=== PATIENT | male | born 1940 | race Caucasian/White ===

== ENCOUNTER 2022-09-15 18:22 | Outpatient (RCR) | payer MEDICARE, SELFPAY | END 2022-10-09 23:59 | disposition home or self-care (01) | LOC: MM 18:22 | PROVIDERS: PCP Internal Medicine; Visit Provider Internal Medicine | DX: Z51.81 Encounter for therapeutic drug level monitoring (principal); Z79.01 Long term (current) use of anticoagulants; I48.20 Chronic atrial fibrillation, unspecified ==

== ENCOUNTER 2022-09-23 03:52 | Emergency (ER) | payer MEDICARE, SELFPAY ==
[2022-09-23] VITALS (9 sets, daily range): BP systolic 114–146; BP diastolic 59–81; PULSE 63–68; RESP 16–24; TEMP 36.7; O2SAT 95–98; BMI 33.5
--- NOTE | 2022-09-23 04:21 | ECG_ITS ---
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
--- NOTE | 2022-09-23 04:21 | CT_ITS ---
The [address] [address] Patient Name: ANNALISA ESCOBAR MRN: [id number] date: 1940 Sex: M Assigned Patient Location: ER Current Patient Location: Accession/Order Number: [id number] Exam Date: 09/23/2022 04:46 Report Date: 09/23/2022 06:11 At the request of: MARYCHUY MARKER Procedure: CT abdomen pelvis wo con EXAM: CT abdomen pelvis wo con HISTORY: pelvic fract ; technologist notes state fall. COMPARISON: None. TECHNIQUE: Routine CT abdomen/pelvis without intravenous contrast. FINDINGS: Partially imaged coronary artery calcification. Partially imaged gynecomastia. Small hiatal hernia. Mild atelectatic densities at both lung bases. The liver is unremarkable. There are gallstones within the gallbladder which is otherwise unremarkable. There is no biliary dilatation. There is fatty infiltration of the pancreas which is otherwise unremarkable. The spleen, bilateral adrenal glands and bilateral kidneys are unremarkable. The colon is unremarkable containing a moderate amount of stool. There is a tubular structure extending from the cecum which most likely represents the appendix and is unremarkable. There is a small hiatal hernia. The stomach is otherwise unremarkable. The small bowel is normal caliber. The bowel gas pattern is nonobstructive. There is no free air. There is mild edema within the presacral space. There is no inflammatory reaction. Mild atheromatous calcification along the abdominal aorta and iliac arteries. The inferior vena cava is unremarkable. There are no pathologically enlarged lymph nodes within the abdomen/pelvis. The underdistended unopacified urinary bladder is unremarkable. There are partially visualized stranding densities within the subcutaneous tissues along the medial margin of the inferior aspect of the right buttock. Correlation should be made with the clinical examination to exclude an inflammatory process. The bony structures are osteopenic. There is slight levoscoliosis of the lumbar spine. Stable 0.6 cm anterolisthesis of L5 on S1 which may be based on facet arthritis. Stable less than 5% loss of height of the T11, T12, L1 and L2 vertebral bodies. Multilevel syndesmophytes along the spine and fusion of the bilateral sacroiliac joints which can be associated with ankylosing spondylitis. Additional multilevel degenerative changes along the spine. There are severe degenerative changes at the bilateral hip joints. There is chondrocalcinosis at the symphysis which is otherwise unremarkable. There is no acute fracture. IMPRESSION: Nonobstructive bowel gas pattern with a moderate amount of stool within the colon. There is a small hiatal hernia. Cholelithiasis. Mild edema within the presacral space. There are partially visualized stranding densities within the subcutaneous tissues along the medial margin of the inferior aspect of the right buttock. Correlation should be made with the clinical examination to exclude an inflammatory process. There is no acute fracture. Stable less than 5% loss of height of the T11, T12, L1 and L2 vertebral bodies. Findings consistent with ankylosing spondylitis. Electronically authenticated by: MAICOL TOVAR Date: 09/23/2022 06:11
--- NOTE | 2022-09-23 04:21 | CT_ITS ---
The [address] [address] Patient Name: ANNALISA ESCOBAR MRN: [id number] date: 1940 Sex: M Assigned Patient Location: ER Current Patient Location: ER Accession/Order Number: [id number] Exam Date: 09/23/2022 04:46 Report Date: 09/23/2022 06:14 At the request of: MARYCHUY MARKER Procedure: CT head/brain wo con EXAM: CT head/brain wo con CLINICAL INDICATION: Fall, AMS COMPARISON: None TECHNIQUE: Axial CT images of the brain were obtained without contrast. Dose reduction techniques were achieved by using automated exposure control and/or adjustment of mA and/or kV according to patient size and/or use of iterative reconstruction technique. FINDINGS: Brain parenchyma: No mass effect or midline shift is seen. Alan-white differentiation is maintained. Small focal area of acute subdural hemorrhage visualized along the anterior right temporal convexity measuring 3.3 mm. No other areas of hemorrhage visualized.. No findings suggesting acute stroke. Periventricular hypoattenuation / patchy white matter hypodensities are statistically most often related to small vessel ischemic disease. Ventricles and extra-axial spaces: Ventricles are concordant with sulci. No findings suggesting hydrocephalus. Visualized paranasal sinuses: Layering hyperdensity noted within the right frontal sinus which may represent blood products. Layering fluid noted within the left frontal sinus. Air-fluid level visualized within the right maxillary sinus.. Mastoid air cells: Clear. Included portions of the orbits:There are some hyperdensities noted along the posterior left globe which may represent vitreous hemorrhage. Bones: Questionable nondisplaced fracture along the outer table of the right frontal bone along the region of the right frontal sinus with foci of air noted anterior to the frontal bone. Soft tissue swelling with subgaleal hematoma noted along the right frontal scalp measuring with a maximal thickness of 4.7 mm.. Impression: 1. Small focal area of acute subdural hemorrhage visualized along the anterior right temporal convexity measuring 3.3 mm, no other areas of hemorrhage visualized. No evidence for mass effect or midline shift. 2. Hyperdensities noted along the posterior aspect of the left globe which may represent vitreous hemorrhage. 3. Layering hyperdensity noted within the right frontal sinus which may represent blood products. There is a questionable nondisplaced fracture visualized along the outer table of the right frontal bone along the region of the right frontal sinus with foci of air noted anterior to the frontal bone. Soft tissue swelling with subgaleal hematoma noted along the right frontal scalp measuring with a maximal thickness of 4.7 mm. Findings were relayed to Dr. Aguirre over telephone by Dr. Garcia at 6:14 AM on 09/23/2022. Electronically authenticated by: DAE GARCIA Date: 09/23/2022 06:14
--- NOTE | 2022-09-23 04:23 | CT_ITS ---
The [address] [address] Patient Name: ANNALISA ESCOBAR MRN: [id number] date: 1940 Sex: M Assigned Patient Location: ER Current Patient Location: .[facility] Accession/Order Number: [id number] Exam Date: 09/23/2022 04:46 Report Date: 09/23/2022 06:02 At the request of: MARYCHUY LOERA Procedure: CT cervical spine wo con EXAM: CT cervical spine wo con HISTORY: fall, head trauma COMPARISON: CT cervical spine 04/29/2021. TECHNIQUE: Axial CT images of the cervical spine were obtained without intravenous contrast administration. Reformatted images in coronal and sagittal planes were then acquired using the axial source data. Automated dose lowering techniques and/or adjustment according to patient size were utilized for this examination. FINDINGS: There is mild straightening of the normal cervical lordotic curvature. Vertebral body heights are preserved. Osseous fusion of the C5 and C6 vertebral bodies visualized. Diffuse osteopenic bone density visualized. The ring of C1 is intact. The odontoid process is intact. No acute fractures are visualized. The posterior elements are intact. The prevertebral soft tissues appear unremarkable. The cervical spine alignment is maintained without evidence for significant spondylolisthesis. Multilevel degenerative disc disease visualized with the most advanced changes at the C6-C7 level with severe disc height loss. There is moderate disc height loss at C3-C4 and mild to moderate within the remainder of the cervical spine. 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 Multilevel disc osteophyte complexes visualized with mild to moderate central canal narrowing at C4-C5, no evidence to suggest high-grade central canal narrowing within the cervical spine. Multilevel facet and uncovertebral arthropathy visualized contributing to multilevel neuroforaminal narrowing. There is moderate to severe left neuroforaminal narrowing at C2-C3. Severe bilateral neuroforaminal narrowing at C3-C4. Moderate to severe right neuroforaminal narrowing at C4-C5. Moderate bilateral neuroforaminal narrowing at C5-C6. IMPRESSION: 1. Multilevel degenerative changes of the cervical spine without evidence for an acute fracture or traumatic malalignment. Electronically authenticated by: DAE GARCIA Date: 09/23/2022 06:02
--- NOTE | 2022-09-23 04:24 | ED_ITS ---
HPI - General Adult General Chief complaint: Extremity Injury, Upper Time Seen by Provider: 09/23/22 04:21 Source: patient and family Mode of arrival: ambulance Limitations: altered mental status and other (hx dementia) Limitations comment: hx dementia History of Present Illness HPI narrative: This 81-year-old male with a history of dementia and neuropathy is brought to the emergency department by EMS accompanied by his and daughter. The patient's daughter states that he has dementia and has fallen 4 times this week. This morning he was blowing his nose when he lost his balance and fell striking his head and face against a wall or door. The patient's did not see him fall but heard him fall. He also had a fall this week when he fell flat onto his buttocks and according to his has a bad bruise in his buttock area. He did require fasciotomy in the past due to an injury to his right upper leg. The patient has been eating and drinking normally. He has not had a fever or cough. He denies any chest pain or shortness of breath. He does have a history of neuropathy and the family relates this as the etiology of his recent falls.This morning when he fell he sustained several abrasions to his forehead, bridge of his nose and superficial skin tears to the right forearm. He denies any neck or back pain. EMS was called because the patient's was unable to get him off of the floor. The patient is jovial upon arrival and denies any significant pain but states his face is burning. Onset (ago): hour(s) (1) Location: Reports face, pelvis and genitals Severity: mild Quality: Reports burning Related Data Home Medications Medication Instructions Recorded Confirmed aspirin 81 mg tablet,delayed 81 mg PO DAILY 09/23/22 09/23/22 release (Adult Low Dose Aspirin) atorvastatin 40 mg tablet 40 mg PO QDAY 09/23/22 09/23/22 furosemide 20 mg tablet 20 mg PO QDAY 09/23/22 09/23/22 gabapentin 300 mg capsule 300 mg PO Q8H 09/23/22 09/23/22 insulin NPH isoph U-100 human 100 24 unit subcut .q2day 09/23/22 09/23/22 unit/mL subcutaneous suspension (Novolin N NPH U-100 Insulin isophane) insulin aspart U-100 100 unit/mL See Rx Instructions subcut .s3sbypv 09/23/22 09/23/22 subcutaneous solution (Novolog U-100 Insulin aspart) omeprazole 20 mg capsule,delayed 20 mg PO Q12H 09/23/22 09/23/22 release tamsulosin 0.4 mg capsule 0.4 mg PO Q24H 09/23/22 09/23/22 warfarin 3 mg tablet 3 mg PO QDAY 09/23/22 09/23/22 Allergies Allergy/AdvReac Type Severity Reaction Status Date / Time No Known Drug Allergies Allergy Verified 09/23/22 03:58 Review of Systems ROS Status of ROS 10 or more systems reviewed and unremarkable except as noted in history and below PFSH PFS Social History Smoking status: Never smoker Exam Constitutional Vital Signs - 24 hr 09/23/22 03:55 09/23/22 03:55 09/23/22 05:03 Temperature 98.1 F Pulse Rate 63 Pulse Rate [Monitor] 68 Respiratory Rate 18 24 Blood Pressure 146/81 H 132/68 H Blood Pressure [Left Arm] 146/81 H Pulse Oximetry 96 96 Oxygen Delivery Method Room Air 09/23/22 05:31 09/23/22 06:01 09/23/22 06:01 Temperature Pulse Rate Pulse Rate [Monitor] Respiratory Rate Blood Pressure 114/63 130/59 H 130/59 H Blood Pressure [Left Arm] Pulse Oximetry Oxygen Delivery Method 09/23/22 06:31 Temperature Pulse Rate Pulse Rate [Monitor] Respiratory Rate Blood Pressure 121/59 H Blood Pressure [Left Arm] Pulse Oximetry Oxygen Delivery Method Documenting provider has reviewed patient's vital signs: yes Common normals: no apparent distress, healthy appearing and alert Exam limitations: altered mental status ( pleasantly confused and at his baseline mental status according to /da) General appearance: cooperative, comfortable and well kempt Nutritional appearance: overweight Orientation/consciousness: Yes awake [facility] Common normals: normocephalic, head/scalp atraumatic (superficial abrasion/contusion to forehead and bridge of nose), external ears normal, TMs normal bilaterally, nasal mucous membranes and turbinates normal, moist oral mucous membranes (no oral lesions) and oropharynx normal Head and scalp: normocephalic and atraumatic Face and sinus: normal facial exam Nose: external nose normal (abrasion to bridge of nose) External ear: external ears normal External auditory canal: EACs normal Tympanic membrane: TMs normal bilaterally Eye Common normals: EOMs intact bilaterally and conjunctivae normal (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)) Visual acuity: acuity normal Alignment: alignment normal Periorbital: periorbital findings normal Eyelid: eyelids normal Pupil: PERRL Neck & C-Spine Common normals: full ROM, no lymphadenopathy, supple and no meningeal signs General: tenderness (no posterior cervical midline tenderness or step off) Chest Common normals: inspection of chest normal and palpation of chest normal Respiratory Common normals: normal respiratory effort, no retractions, no use of accessory muscles and clear to auscultation bilaterally Effort & inspection: able to speak in complete sentences Cardio Common normals: regular rate, S1 normal heart sound, S2 normal heart sound, no gallops, no clicks, no murmurs and no rub Palpation: normal PMI Rate: regular rate Rhythm: abnormal rhythm (irregular rhythm consistent with atrial fibrillation) GI Common normals: Normal to inspection, nondistended, normoactive bowel sounds present, soft to palpation and non-tender Common normals: external exam normal (marked ecchymosis to medial buttocks B/L with ext to scrotum) and scrotum normal (marked ecchymosis to b/L scrotum but testes are non-tender) Male Groin/Perineum Exam: ecchymosis and perineal induration (bruising and induration to left buttock w ext to right buttock and scrotum) Penis: normal penis and circumcised Meatus: meatus normal Scrotum: testes descended bilaterally and ecchymosis Testes: testicular lie normal Back & Pelvis Common normals: no CVA tenderness and thoracic and lumbar spine normal to inspection Lumbar spine/lower back: normal to inspection Pelvis: buttocks normal (bruising and induration to left buttock and scrotum, no crepitus ) Extremity Common normals: full ROM (3 skin tears to right forearm) General: normal exam except as noted Left lower extremity: knee joint (bruising without bony tenderness to left knee, no shortening or rotation) Neuro Common normals: oriented x3, CN's II-XII intact bilaterally, moves all extremities, no focal motor deficits and no sensory deficits noted Sensorium/orientation: awake and alert Meningeal signs: no meningeal signs Cranial nerves: CN normal except as noted Speech: speech normal Psych Common normals: mental status grossly normal Course Course Hospital Course: Pt remains awake and alert without any change in his neuro status Results of labs and CT scans discussed with patient and his who verbalize understanding and are in agreement with transfer. Vital Signs Vital signs: Vital Signs Temperature 98.1 F 09/23/22 03:55 Pulse Rate 63 09/23/22 03:55 Respiratory Rate 18 09/23/22 03:55 Blood Pressure 146/81 H 09/23/22 03:55 Pulse Oximetry 96 09/23/22 03:55 Oxygen Delivery Method Room Air 09/23/22 03:55 Temperature 98.1 F 09/23/22 03:55 Pulse Rate 68 09/23/22 03:55 Respiratory Rate 24 09/23/22 03:55 Blood Pressure 121/59 H 09/23/22 06:31 Pulse Oximetry 96 09/23/22 03:55 Oxygen Delivery Method Room Air 09/23/22 03:55 Medical Decision Making MDM Narrative Medical decision making narrative: This 81-year-old male who is on Coumadin for history of atrial fibrillation is brought to the emergency department by EMS accompanied by his family. According to the patient's daughter, he has had 4 falls this week. This morning he states that he was blowingg his nose and lost his balance falling into a wall or a door. He sustained several skin tears to the right forearm and abrasion/contusion to his forehead and bridge of his nose. His GCS is 15. He is awake alert oriented. His states he also has purplish bruising in his perineal area after a fall when he landed on his buttocks earlier in the week. He has extensive bruising from both buttocks including his scrotum. This does not appear to be particularly tender for the patient. There was no crepitus in this area. He is diabetic but has not had any increasing and confusion or fever. Light of the history of Coumadin use and falls a cardiac workup ensued. He had an EKG performed that was no rhythm at 60 beats for minute. Routine labs are reviewed. He has a low white count at 2.7. Hemoglobin is normal. Electrolytes were normal. CT scan of the head shows a 3.3 mm subdural hematoma with a questionable frontal bone fracture. CT scan of the cervical spine shows extensive degenerative changes but no acute fracture and noncontrast CT scan of the abdomen and pelvis shows some thickening in the subcutaneous days tissues on the medial margin of the inferior aspect of the right buttock but no sign of acute fracture. The cans were discussed with the patient and his . I discussed the case with Dr. Pierson at [facility] and he is accepted for transfer to the emergency department for a trauma consult and further evaluation. He was medicated with Tylenol in the emergency department and his skin tears were cleaned and closed with Dermabond. PT INR testing is pending at this time. If elevated he will be given IV vitamin K Lab Data Lab results reviewed: Yes I reviewed the patient's lab results Labs: Lab Results 09/23/22 09/23/22 Range/Units 04:43 04:45 WBC 2.7 L (4.0-11.0) 10^3/uL RBC 3.00 L (4.70-6.10) 10^6/uL Hgb 11.0 L (14.0-18.0) g/dL Hct 31.6 L (42.0-54.0) % MCV 105.3 H (80.0-94.0) fL MCH 36.7 H (25.9-34.0) pg MCHC 34.8 (29.9-35.2) g/dL RDW 13.2 (11.0-15.0) % Plt Count 108 L (150-450) 10^3/uL MPV 11.1 (9.5-13.5) fL Neut % (Auto) 63.8 (43.0-75.0) % Lymph % (Auto) 28.2 (20.5-60.0) % [place] % (Auto) 3.8 (1.7-12.0) % Eos % (Auto) 3.0 (0.9-7.0) % Baso % (Auto) 0.8 (0.2-2.0) % Neut # (Auto) 1.7 (1.4-6.5) 10^3/uL Lymph # (Auto) 0.8 L (1.2-3.8) 10^3/uL [place] # (Auto) 0.1 L (0.3-0.8) 10^3/uL Eos # (Auto) 0.1 (0.0-0.7) 10^3/uL Baso # (Auto) 0.0 (0.0-0.1) 10^3/uL Abs Immat Gran (auto) 0.01 (0.00-0.03) 10^3/uL Imm/Tot Granulo (auto) 0.4 (0.0-0.5) % Sodium 143 (136-145) mmol/L Potassium 3.5 (3.5-5.1) mmol/L Chloride 106 (98-107) mmol/L Carbon Dioxide 28.1 (21.0-32.0) mmol/L Anion Gap 12.4 BUN 15.0 (7.0-18.0) mg/dL Creatinine 0.99 (0.70-1.30) mg/dL Est GFR ( Amer) >60 (>=60) Est GFR (Non-Af Amer) >60 (>=60) BUN/Creatinine Ratio 15.2 Glucose 90 (74-106) mg/dL Lactate 1.3 (0.4-2.0) mmol/L Calcium 8.6 (8.5-10.1) mg/dL Total Creatine Kinase 113 (39-308) U/L POC Glucose 88 (74-106) mg/dL ECG Data Attestation: I personally reviewed and interpreted this ECG as follows: (Atrial rhythm at 60 beats for minute, nonspecific ST changes, no acute ST segment elevation or T-wave inversion) Critical Care Time Critical Care Time Critical Care Time: Yes Total Critical Care Time: 40 Attestation: I evaluated and treated this patient Discharge Plan Discharge Chief Complaint: Extremity Injury, Upper Clinical Impression: Skin tear of forearm without complication, Acute subdural hematoma, Fall from standing, Contusion of pelvic region Patient Disposition: [facility] Time of Disposition Decision: 06:42 Discharge Location: [facility] Condition: Fair Mode of Transportation: EMS Procedures ED Laceration Laceration Laceration 1: Site: upper extremity Size (cm): 1.5 Description: flap and clean Skin layer closed with: other (dermabond applied topically over right forearm lacerations with good wound edge approximation)
--- NOTE | 2022-09-23 04:24 | PC.NURSE ---
Bruising to buttock, perineal, and scrotum from previous fall. Pt's family unsure when pt bruising started just noticed this morning. Pt states that family has been falling more, and in the last week has had fallen 4 times.
[2022-09-23 04:46] LABS: Glucometer 88 mg/dL (74-106)
[2022-09-23 05:22] LABS: Basophils Percent Auto 0.8 % (0.2-2.0); Eosinophils Absolute Auto 0.1 10^3/uL (0.0-0.7); Hematocrit 31.6 % (42.0-54.0); Immature Granulocytes Abs Auto 0.01 10^3/uL (0.00-0.03); Immature Granulocytes Pct Auto 0.4 % (0.0-0.5); Lymphocytes Absolute Auto 0.8 10^3/uL (1.2-3.8); Lymphocytes Percent Auto 28.2 % (20.5-60.0); Mean Corpuscular HGB Conc 34.8 g/dL (29.9-35.2); Mean Corpuscular Hemoglobin 36.7 pg (25.9-34.0); Mean Corpuscular Volume 105.3 fL (80.0-94.0); Mean Platelet Volume 11.1 fL (9.5-13.5); Monocytes Absolute Auto 0.1 10^3/uL (0.3-0.8); Monocytes Percent Auto 3.8 % (1.7-12.0); Neutrophils Absolute Auto 1.7 10^3/uL (1.4-6.5); Neutrophils Percent Auto 63.8 % (43.0-75.0); Platelet Count 108 10^3/uL (150-450); Red Cell Distribution Width 13.2 % (11.0-15.0); White Blood Count 2.7 10^3/uL (4.0-11.0)
[2022-09-23] MEDS: ACETAMINOPHEN 325 MG TABLET 650 MG PO (05:29)
[2022-09-23 05:37] LABS: Anion Gap 12.4; BUN Creatinine Ratio 15.2; Calcium 8.6 mg/dL (8.5-10.1); Carbon Dioxide 28.1 mmol/L (21.0-32.0); Chloride 106 mmol/L (98-107); Creatine Kinase 113 U/L (39-308); Estimated GFR (African America >60 (>=60); Estimated GFR (Non-African Ame >60 (>=60); Glucose 90 mg/dL (74-106); Potassium 3.5 mmol/L (3.5-5.1); Sodium 143 mmol/L (136-145)
[2022-09-23 05:40] LABS: Lactate/Lactic Acid 1.3 mmol/L (0.4-2.0)
[2022-09-23 06:54] LABS: Bilirubin Urine NEGATIVE (NEGATIVE); Blood Urine TRACE-I (NEGATIVE); Clarity Urine CLEAR (CLEAR); Color Urine YELLOW (YELLOW); Glucose Urine UA NEGATIVE (NEGATIVE); Ketones Urine NEGATIVE (NEGATIVE); Leukocyte Esterase Urine NEGATIVE (NEGATIVE); Nitrite Urine NEGATIVE (NEGATIVE); Protein Urine NEGATIVE (NEG/TRACE); Specific Gravity Urine 1.025 (1.005-1.025); pH Urine 5.5 (5.0-9.0)
[2022-09-23 07:06] LABS: Bacteria Urine TRACE #/HPF (NONE SEEN); Mucus Urine NONE SEEN (NONE SEEN); RBC Urine 0-2 #/HPF (0-2); Squamous Epithelial Cell Urine RARE #/LPF (NONE/RARE); WBC Urine NONE SEEN #/HPF (NONE SEEN)
[2022-09-23 07:07] LABS: Cast Seen? NONE SEEN #/LPF (NONE SEEN); Crystals Seen? None Seen #/HPF (None Seen)
[2022-09-23 07:15] LABS: INR 2.82; Prothrombin Time 28.2 sec (9.0-11.6)
[2022-09-23 07:17] LABS: Partial Thromboplastin Time 41.8 sec (22.3-36.2)
--- NOTE | 2022-09-23 07:26 | ED_ITS ---
HPI - Trauma General Chief Complaint: Extremity Injury, Upper Time Seen by Provider: 09/23/22 04:21 Source: patient and family Mode of arrival: ambulance Limitations: altered mental status and other (hx dementia) Limitations comment: hx dementia History of Present Illness Onset (ago): hour(s) (1) Related Data Home Medications Medication Instructions Recorded Confirmed aspirin 81 mg tablet,delayed 81 mg PO DAILY 09/23/22 09/23/22 release (Adult Low Dose Aspirin) atorvastatin 40 mg tablet 40 mg PO QDAY 09/23/22 09/23/22 furosemide 20 mg tablet 20 mg PO QDAY 09/23/22 09/23/22 gabapentin 300 mg capsule 300 mg PO Q8H 09/23/22 09/23/22 insulin NPH isoph U-100 human 100 24 unit subcut .q2day 09/23/22 09/23/22 unit/mL subcutaneous suspension (Novolin N NPH U-100 Insulin isophane) insulin aspart U-100 100 unit/mL See Rx Instructions subcut .[id number] 09/23/22 09/23/22 subcutaneous solution (Novolog U-100 Insulin aspart) omeprazole 20 mg capsule,delayed 20 mg PO Q12H 09/23/22 09/23/22 release tamsulosin 0.4 mg capsule 0.4 mg PO Q24H 09/23/22 09/23/22 warfarin 3 mg tablet 3 mg PO QDAY 09/23/22 09/23/22 Allergies Allergy/AdvReac Type Severity Reaction Status Date / Time No Known Drug Allergies Allergy Verified 09/23/22 03:58 PFSH PFSH Social History Smoking status: Never smoker Exam Constitutional Vital Signs - 24 hr 09/23/22 03:55 09/23/22 03:55 09/23/22 05:03 Temperature 98.1 F Pulse Rate 63 Pulse Rate [Monitor] 68 Respiratory Rate 18 24 Blood Pressure 146/81 H 132/68 H Blood Pressure [Left Arm] 146/81 H Pulse Oximetry 96 96 Oxygen Delivery Method Room Air 09/23/22 05:31 09/23/22 06:01 09/23/22 06:01 Temperature Pulse Rate Pulse Rate [Monitor] Respiratory Rate Blood Pressure 114/63 130/59 H 130/59 H Blood Pressure [Left Arm] Pulse Oximetry Oxygen Delivery Method 09/23/22 06:31 09/23/22 06:31 09/23/22 07:00 Temperature Pulse Rate Pulse Rate [Monitor] 64 Respiratory Rate 20 Blood Pressure 121/59 H 121/59 H Blood Pressure [Left Arm] 134/60 H Pulse Oximetry 96 Oxygen Delivery Method Room Air 09/23/22 07:30 09/23/22 08:16 Temperature Pulse Rate Pulse Rate [Monitor] 63 66 Respiratory Rate 20 16 Blood Pressure Blood Pressure [Left Arm] 124/66 H 131/73 H Pulse Oximetry 97 95 Oxygen Delivery Method Room Air Room Air Course Course Hospital Course: Pt remains awake and alert without any change in his neuro status Results of labs and CT scans discussed with patient and his who verbalize understanding and are in agreement with transfer. Vital Signs Vital signs: Vital Signs Temperature 98.1 F 09/23/22 03:55 Pulse Rate 63 09/23/22 03:55 Respiratory Rate 18 09/23/22 03:55 Blood Pressure 146/81 H 09/23/22 03:55 Pulse Oximetry 96 09/23/22 03:55 Oxygen Delivery Method Room Air 09/23/22 03:55 Temperature 98.1 F 09/23/22 03:55 Pulse Rate 66 09/23/22 08:16 Respiratory Rate 16 09/23/22 08:16 Blood Pressure 131/73 H 09/23/22 08:16 Pulse Oximetry 95 09/23/22 08:16 Oxygen Delivery Method Room Air 09/23/22 08:16 MDM - Trauma MDM Narrative Medical decision making narrative: Patient signed out to me by Dr. aviles at the end of my shift awaiting INR and UA results.Patient has been accepted at the [facility] and ground transport was set up is scheduled to be here at 8:30. Patient was seen and evaluated by me. He is awake and alert. He states he took 3 mg of Coumadin yesterday. I ordered Kcentra and vitamin K. Urinalysis Does not show an acute infection. She remained hemodynamically stable. EMS is here to transport the patient. This note was created with the assistance of a speech recognition program. Although the intention is to generate documents that actually reflects the content of the visit, no guarantees can be provided that every mistake has been identified and corrected by editing. Lab Data Labs: Lab Results 09/23/22 09/23/22 09/23/22 Range/Units 04:40 04:43 04:45 WBC 2.7 L (4.0-11.0) 10^3/uL RBC 3.00 L (4.70-6.10) 10^6/uL Hgb 11.0 L (14.0-18.0) g/dL Hct 31.6 L (42.0-54.0) % MCV 105.3 H (80.0-94.0) fL MCH 36.7 H (25.9-34.0) pg MCHC 34.8 (29.9-35.2) g/dL RDW 13.2 (11.0-15.0) % Plt Count 108 L (150-450) 10^3/uL MPV 11.1 (9.5-13.5) fL Neut % (Auto) 63.8 (43.0-75.0) % Lymph % (Auto) 28.2 (20.5-60.0) % [place] % (Auto) 3.8 (1.7-12.0) % Eos % (Auto) 3.0 (0.9-7.0) % Baso % (Auto) 0.8 (0.2-2.0) % Neut # (Auto) 1.7 (1.4-6.5) 10^3/uL Lymph # (Auto) 0.8 L (1.2-3.8) 10^3/uL [place] # (Auto) 0.1 L (0.3-0.8) 10^3/uL Eos # (Auto) 0.1 (0.0-0.7) 10^3/uL Baso # (Auto) 0.0 (0.0-0.1) 10^3/uL Abs Immat Gran (auto) 0.01 (0.00-0.03) 10^3/uL Imm/Tot Granulo (auto) 0.4 (0.0-0.5) % PT 28.2 H (9.0-11.6) sec INR 2.82 APTT 41.8 H* (22.3-36.2) sec Sodium 143 (136-145) mmol/L Potassium 3.5 (3.5-5.1) mmol/L Chloride 106 (98-107) mmol/L Carbon Dioxide 28.1 (21.0-32.0) mmol/L Anion Gap 12.4 BUN 15.0 (7.0-18.0) mg/dL Creatinine 0.99 (0.70-1.30) mg/dL Est GFR ( Amer) >60 (>=60) Est GFR (Non-Af Amer) >60 (>=60) BUN/Creatinine Ratio 15.2 Glucose 90 (74-106) mg/dL Lactate 1.3 (0.4-2.0) mmol/L Calcium 8.6 (8.5-10.1) mg/dL Total Creatine Kinase 113 (39-308) U/L Urine Color (YELLOW) Urine Clarity (CLEAR) Urine pH (5.0-9.0) Ur Specific [place] (1.005-1.025) Urine Protein (NEG/TRACE) mg/dL Urine Glucose (UA) (NEGATIVE) mg/dL Urine Ketones (NEGATIVE) mg/dL Urine Occult Blood (NEGATIVE) Urine Nitrite (NEGATIVE) Urine Bilirubin (NEGATIVE) Urine Urobilinogen (0.2-1.0) EU/dL Ur Leukocyte Esterase (NEGATIVE) Urine RBC (0-2) #/HPF Urine WBC (NONE SEEN) #/HPF Ur Squamous Epith Cells (NONE/RARE) #/LPF Urine Crystals (None Seen) #/HPF Urine Bacteria (NONE SEEN) #/HPF Urine Casts (NONE SEEN) #/LPF Urine Mucus (NONE SEEN) POC Glucose 88 (74-106) mg/dL 09/23/22 Range/Units 06:16 WBC (4.0-11.0) 10^3/uL RBC (4.70-6.10) 10^6/uL Hgb (14.0-18.0) g/dL Hct (42.0-54.0) % MCV (80.0-94.0) fL MCH (25.9-34.0) pg MCHC (29.9-35.2) g/dL RDW (11.0-15.0) % Plt Count (150-450) 10^3/uL MPV (9.5-13.5) fL Neut % (Auto) (43.0-75.0) % Lymph % (Auto) (20.5-60.0) % Early % (Auto) (1.7-12.0) % Eos % (Auto) (0.9-7.0) % Baso % (Auto) (0.2-2.0) % Neut # (Auto) (1.4-6.5) 10^3/uL Lymph # (Auto) (1.2-3.8) 10^3/uL Early # (Auto) (0.3-0.8) 10^3/uL Eos # (Auto) (0.0-0.7) 10^3/uL Baso # (Auto) (0.0-0.1) 10^3/uL Abs Immat Gran (auto) (0.00-0.03) 10^3/uL Imm/Tot Granulo (auto) (0.0-0.5) % PT (9.0-11.6) sec INR APTT (22.3-36.2) sec Sodium (136-145) mmol/L Potassium (3.5-5.1) mmol/L Chloride (98-107) mmol/L Carbon Dioxide (21.0-32.0) mmol/L Anion Gap BUN (7.0-18.0) mg/dL Creatinine (0.70-1.30) mg/dL Est GFR ( Amer) (>=60) Est GFR (Non-Af Amer) (>=60) BUN/Creatinine Ratio Glucose (74-106) mg/dL Lactate (0.4-2.0) mmol/L Calcium (8.5-10.1) mg/dL Total Creatine Kinase (39-308) U/L Urine Color Yellow (YELLOW) Urine Clarity Clear (CLEAR) Urine pH 5.5 (5.0-9.0) Ur Specific [place] 1.025 (1.005-1.025) Urine Protein Negative (NEG/TRACE) mg/dL Urine Glucose (UA) Negative (NEGATIVE) mg/dL Urine Ketones Negative (NEGATIVE) mg/dL Urine Occult Blood Trace-i (NEGATIVE) Urine Nitrite Negative (NEGATIVE) Urine Bilirubin Negative (NEGATIVE) Urine Urobilinogen 2.0 A (0.2-1.0) EU/dL Ur Leukocyte Esterase Negative (NEGATIVE) Urine RBC 0-2 (0-2) #/HPF Urine WBC None seen (NONE SEEN) #/HPF Ur Squamous Epith Cells Rare (NONE/RARE) #/LPF Urine Crystals None seen (None Seen) #/HPF Urine Bacteria Trace A (NONE SEEN) #/HPF Urine Casts None seen (NONE SEEN) #/LPF Urine Mucus None seen (NONE SEEN) POC Glucose (74-106) mg/dL Discharge Plan Discharge Chief Complaint: Extremity Injury, Upper Clinical Impression: Skin tear of forearm without complication, Acute subdural hematoma, Contusion of pelvic region Fall from standing Qualifiers: Encounter type: initial encounter Qualified Code(s): W19.XXXA - Unspecified fall, initial encounter Patient Disposition: [facility] Time of Disposition Decision: 06:42 Discharge Location: [facility] Condition: Fair Mode of Transportation: EMS
[2022-09-23] MEDS: HUM PROTHROMBIN CPLX(PCC)4FACT 2,000 UNIT in EMPTY BAG 80 ML 783.806 UNIT IV (07:59)
[2022-09-23] MEDS: SODIUM CHLORIDE 0.9% IV (08:13)
[2022-09-23] MEDS: PHYTONADIONE IV (08:13)
== END 2022-09-23 08:58 | disposition short-term general hospital (02) ==
PROVIDERS: Emergency Medicine; Emergency Provider Emergency Medicine; PCP Family Medicine
DX: S06.5X0A Traumatic subdural hemorrhage without loss of consciousness, initial encounter (principal); S51.811A Laceration without foreign body of right forearm, initial encounter; S30.0XXA Contusion of lower back and pelvis, initial encounter; I48.91 Unspecified atrial fibrillation; F03.90 Unspecified dementia, unspecified severity, without behavioral disturbance, psychotic disturbance, mood disturbance, and anxiety; G62.9 Polyneuropathy, unspecified; W19.XXXA Unspecified fall, initial encounter; Z91.81 History of falling; Z79.82 Long term (current) use of aspirin; Z79.899 Other long term (current) drug therapy; Z79.01 Long term (current) use of anticoagulants; Z79.4 Long term (current) use of insulin
CPT/HCPCS: 12001; 36415; 70450; 72125; 74176; 80048; 81001; 82550; 82948; 83605; 85025; 85610; 85730; 93005; 96374; 99285; J7168

== ENCOUNTER 2022-10-15 09:14 | Outpatient (RCR) | payer MEDICARE, SELFPAY | END 2022-11-09 17:00 | disposition home or self-care (01) | LOC: MM 09:14 | PROVIDERS: PCP Internal Medicine; Visit Provider Internal Medicine | DX: Z51.81 Encounter for therapeutic drug level monitoring (principal); Z79.01 Long term (current) use of anticoagulants; I48.20 Chronic atrial fibrillation, unspecified ==

== ENCOUNTER 2022-11-10 09:26 | Outpatient (RCR) | payer MEDICARE, SELFPAY | END 2022-12-10 17:36 | disposition home or self-care (01) | LOC: MM 09:26 | PROVIDERS: PCP Internal Medicine; Visit Provider Internal Medicine | DX: Z51.81 Encounter for therapeutic drug level monitoring (principal); Z79.01 Long term (current) use of anticoagulants; I48.20 Chronic atrial fibrillation, unspecified ==

== ENCOUNTER 2022-11-22 14:08 | Inpatient (IN) | payer MEDICARE, SELFPAY ==
[2022-11-22] VITALS (14 sets, daily range): BP systolic 114–132; BP diastolic 65–81; PULSE 73–79; RESP 15–20; TEMP 36.6; O2SAT 86–99; BMI 33.5; BMI 69.6
[2022-11-22 14:18] LABS: Glucometer 112 mg/dL (74-106)
--- NOTE | 2022-11-22 14:27 | ECG_ITS ---
[facility] Test Date: 2022-11-22 Pat Name: ANNALISA ESCOBAR Department: Room: - Gender: Male Training Developer: : 1940 Requested By: SHAIKH ALEXANDER Order Number: [id number] Reading MD: TOBY YUAN Measurements Intervals Chambers Rate: 76 P: -[id number] VA: -[id number] QRS: 30 QRSD: 90 T: 55 QT: 408 QTc: 438 Interpretive Statements 1250 Atrial flutter 9140 abnormal rhythm ECG Compared to ECG 09/23/2022 04:32:34 No significant changes Electronically Signed On 11-23-2022 7:17:09 EDT by TOBY YUAN
[2022-11-22 14:36] LABS: Basophils Percent Auto 0.5 % (0.2-2.0); Eosinophils Absolute Auto 0.1 10^3/uL (0.0-0.7); Eosinophils Percent Auto 2.1 % (0.9-7.0); Hematocrit 32.8 % (42.0-54.0); Hemoglobin 11.3 g/dL (14.0-18.0); Immature Granulocytes Abs Auto 0.01 10^3/uL (0.00-0.03); Immature Granulocytes Pct Auto 0.3 % (0.0-0.5); Lymphocytes Absolute Auto 0.7 10^3/uL (1.2-3.8); Lymphocytes Percent Auto 18.8 % (20.5-60.0); Mean Corpuscular HGB Conc 34.5 g/dL (29.9-35.2); Mean Corpuscular Hemoglobin 36.8 pg (25.9-34.0); Mean Corpuscular Volume 106.8 fL (80.0-94.0); Mean Platelet Volume 10.5 fL (9.5-13.5); Monocytes Absolute Auto 0.1 10^3/uL (0.3-0.8); Monocytes Percent Auto 2.1 % (1.7-12.0); Neutrophils Absolute Auto 2.9 10^3/uL (1.4-6.5); Neutrophils Percent Auto 76.2 % (43.0-75.0); Platelet Count 112 10^3/uL (150-450); Red Blood Count 3.07 10^6/uL (4.70-6.10); Red Cell Distribution Width 14.1 % (11.0-15.0); White Blood Count 3.8 10^3/uL (4.0-11.0)
--- NOTE | 2022-11-22 14:50 | CT_ITS ---
[address] [address] Patient Name: ANNALISA ESCOBAR MRN: [id number] date: 1940 Sex: M Assigned Patient Location: ER Current Patient Location: Accession/Order Number: [id number] Exam Date: 11/22/2022 15:02 Report Date: 11/22/2022 15:44 At the request of: GUILLERMO ELI Procedure: CT lumbar spine wo con EXAM: CT thoracic spine wo con, CT lumbar spine wo con HISTORY: fall, back pain COMPARISON: CT abdomen and pelvis 09/23/2022. TECHNIQUE: CT thoracolumbar spine without contrast. Multiplanar reformats obtained. The current study utilizes one or more of the following dose-reduction techniques: automated exposure control, iterative reconstruction, and/or manual adjustment of tube current and voltage for size. FINDINGS: Thoracic spine: Bones are demineralized. Multilevel flowing bridging anterior vertebral osteophytes. T11 wedge compression deformity with 20% height loss. T12 vertebral body fracture with less than 20% height loss, fracture involves the bridging osteophyte of the T11-T12 vertebrae. Cardiomegaly. Mild basilar atelectasis. Small hiatal hernia. Biliary sludge versus cholelithiasis. Tiny duodenal diverticulum. Lumbar spine: Bones are demineralized. L4 superior endplate fracture with up to 20% height loss centrally. Severe lumbar facet arthropathy. No traumatic malalignment. L5-S1 osseous fusion. Multilevel bridging osteophytes. Ankylosis of the thoracolumbar spine. CT/CT lumbar spine wo con IMPRESSION: T12 vertebral body fracture with less than 20% height loss. Fracture involves the bridging syndesmophytes of the T11-T12 vertebrae. L4 superior endplate fracture with up to 20% height loss centrally. Electronically authenticated by: OLIVERIO FRANCOIS Date: 11/22/2022 15:44
--- NOTE | 2022-11-22 14:50 | CT_ITS ---
[address] [address] Patient Name: ANNALISA ESCOBAR MRN: [id number] date: 1940 Sex: M Assigned Patient Location: ER Current Patient Location: Accession/Order Number: [id number] Exam Date: 11/22/2022 15:02 Report Date: 11/22/2022 15:44 At the request of: GUILLERMO ELI Procedure: CT thoracic spine wo con EXAM: CT thoracic spine wo con, CT lumbar spine wo con HISTORY: fall, back pain COMPARISON: CT abdomen and pelvis 09/23/2022. TECHNIQUE: CT thoracolumbar spine without contrast. Multiplanar reformats obtained. The current study utilizes one or more of the following dose-reduction techniques: automated exposure control, iterative reconstruction, and/or manual adjustment of tube current and voltage for size. FINDINGS: Thoracic spine: Bones are demineralized. Multilevel flowing bridging anterior vertebral osteophytes. T11 wedge compression deformity with 20% height loss. T12 vertebral body fracture with less than 20% height loss, fracture involves the bridging osteophyte of the T11-T12 vertebrae. Cardiomegaly. Mild basilar atelectasis. Small hiatal hernia. Biliary sludge versus cholelithiasis. Tiny duodenal diverticulum. Lumbar spine: Bones are demineralized. L4 superior endplate fracture with up to 20% height loss centrally. Severe lumbar facet arthropathy. No traumatic malalignment. L5-S1 osseous fusion. Multilevel bridging osteophytes. Ankylosis of the thoracolumbar spine. CT/CT thoracic spine wo con IMPRESSION: T12 vertebral body fracture with less than 20% height loss. Fracture involves the bridging syndesmophytes of the T11-T12 vertebrae. L4 superior endplate fracture with up to 20% height loss centrally. Electronically authenticated by: OLIVERIO FRANCOIS Date: 11/22/2022 15:44
[2022-11-22 14:51] LABS: Alanine Aminotransferase <6 U/L (16-63); Albumin Globulin Ratio 0.8; Alkaline Phosphatase 149 U/L (46-116); Anion Gap 11.8; Aspartate Amino Transferase 17 U/L (15-37); BUN Creatinine Ratio 19.6; Bilirubin Total 1.8 mg/dL (0.2-1.0); Calcium 8.5 mg/dL (8.5-10.1); Carbon Dioxide 28.2 mmol/L (21.0-32.0); Chloride 104 mmol/L (98-107); Estimated GFR (African America >60 (>=60); Estimated GFR (Non-African Ame >60 (>=60); Globulin 3.7 g/dL; Glucose 103 mg/dL (74-106); Sodium 140 mmol/L (136-145); Total Protein 6.7 g/dL (6.4-8.2)
[2022-11-22] MEDS: ORPHENADRINE 60 MG/ 2 ML VIAL 30 MG IV (14:59)
[2022-11-22] MEDS: HYDROMORPHONE HCL 0.5 MG/0.5 ML SYRINGE IV (15:00)
--- NOTE | 2022-11-22 15:16 | ED_ITS ---
HPI - Fall General Chief Complaint: Fall Stated Complaint: FALL Time Seen by Provider: 11/22/22 14:23 Source: patient Mode of arrival: ambulance Limitations: no limitations History of Present Illness HPI Narrative: patient sent from home after falling and complaining of low back pain. He has apparently had multiple falls over the last week or so. He complains of pain to the low back but also has mid thoracic pain when he tries to sit up or use either arm. No headache, neck pain and he denies LOC but he has some baseline dementia. He lives with his but has been difficult to care for at home with dementia and falling. After the last fall on 11/20/22 he has been unable to perform his ADLs because of the pain Related Data Home Medications Medication Instructions Recorded Confirmed aspirin 81 mg tablet,delayed 81 mg PO DAILY 09/23/22 11/22/22 release (Adult Low Dose Aspirin) atorvastatin 40 mg tablet 40 mg PO QDAY 09/23/22 11/22/22 insulin NPH isoph U-100 human 100 24 unit subcut .q2day 09/23/22 09/23/22 unit/mL subcutaneous suspension (Novolin N NPH U-100 Insulin isophane) insulin aspart U-100 100 unit/mL See Rx Instructions subcut .[id number] 09/23/22 09/23/22 subcutaneous solution (Novolog U-100 Insulin aspart) amlodipine 5 mg tablet 5 mg PO DAILY 11/22/22 11/22/22 gabapentin 100 mg capsule 100 mg PO TID 11/22/22 11/22/22 lorazepam 1 mg tablet 0.5 mg PO Q12H PRN agitation 11/22/22 11/22/22 pantoprazole 40 mg tablet,delayed 40 mg PO DAILY 11/22/22 11/22/22 release polyethylene glycol 3350 17 17 g PO DAILY 11/22/22 11/22/22 gram/dose oral powder (ClearLax) sennosides 17.2 mg tablet (Senokot 17.2 mg PO DAILY 11/22/22 11/22/22 Extra Strength) vitamins A,C,F-sghe-vbpyie 4,296 1 cap PO DAILY 11/22/22 11/22/22 mcg-226 mg-90 mg capsule (PreserVision AREDS) Allergies Allergy/AdvReac Type Severity Reaction Status Date / Time No Known Drug Allergies Allergy Verified 09/23/22 03:58 [facility] Medical History (Updated 11/22/22 @ 16:50 by Guillermo Eli) Social History Smoking status: Never smoker Exam Narrative Exam Narrative: Nurses note and vital signs reviewed and patient is not hypoxic. afebrile General: The patient appears well and in no apparent distress. Patient is re sting comfortably on cart. GCS = 15. Skin: Warm, dry, no pallor noted. Head: Normocephalic, atraumatic - no abrasion, ecchymosis or swelling found Neck: Supple, trachea mid-line. Full ROM and no cervical spinal tenderness. Eyes: PERRLA, EOMI ENT: TMs clear, no hemotympanum detected, no blood in posterior oropharynx Cardiovascular: Regular Rate and Rhythm Respiratory: Patient is in no distress, no accessory muscle use, lungs are clear to auscultation, no wheezing, rales or rhonchi Chest Wall: no tenderness, no flail chest, contusion, abrasion, or signs of trauma. Back: Mid to upper thoracic vertebral tenderness. Diffuse lumbar tenderness to palpation. Positive right straight leg raise; negative on the left. Difficulty sitting up but able to roll to both sides. Musculoskeletal: no sign of long bone fracture, no hip or pelvic tenderness, no UE or LE swelling. Pulses at femoral, DP, PT, and popliteal were 2+ bilaterally. Moves all four extremities in all modalities with 5/5 strength. GI: Normal bowel sounds, no tenderness to palpation, no masses appreciated. No rebound, guarding, or rigidity noted. Neurological: A&O x4, normal equal rn liaison strength, normal finger to nose, normal speech, normal coordination, normal motor, normal sensory. Psychiatric: Cooperative Constitutional Vital Signs, click to edit/add: Last Vital Signs Temp 97.9 F 11/22/22 14:11 Pulse 78 11/22/22 16:10 Resp 15 11/22/22 16:10 BP 127/71 11/22/22 16:00 Pulse Ox 95 11/22/22 16:10 O2 Del Method Nasal Cannula 11/22/22 15:42 O2 Flow Rate 3 11/22/22 15:42 Course Vital Signs Vital signs: Vital Signs Temperature 97.9 F 11/22/22 14:11 Pulse Rate 79 11/22/22 14:11 Respiratory Rate 20 11/22/22 14:11 Blood Pressure 127/81 11/22/22 14:11 Pulse Oximetry 97 11/22/22 14:11 Oxygen Delivery Method Room Air 11/22/22 14:11 Temperature 97.9 F 11/22/22 14:11 Pulse Rate 78 11/22/22 16:10 Respiratory Rate 15 11/22/22 16:10 Blood Pressure 127/71 11/22/22 16:00 Pulse Oximetry 95 11/22/22 16:10 Oxygen Delivery Method Nasal Cannula 11/22/22 15:42 Oxygen Delivery Flow Rate 3 11/22/22 15:42 MDM - Fall MDM Narrative Medical decision making narrative: peripheral IV established and blood drawn and sent for testing. EKG obtained = rate controlled atrial flutter. CBC and CMP unremarkable. CT scans of the thoracic and lumbar spine show T12 vertebral body fracture with less than 20% height loss. L4 superior endplate fracture with up to 20% height loss. Patient received low dose norflex and low dose dilaudid in the ED. On recheck he is still in moderate to severe pain in the back when he attempts to sit up or try to stand. Family concerned about being able to care for him at home with him not being able to assist with ADLs. Family told me that the patient's PCP is Dr Dixon and that they had planned to see Dr Rick I spoke with Dr Dillard by phone and the patient is admitted to Dr Dillard's service, in-patient med/surg floor. Not likely a surgical candidate for the T12 and L4 fractures. Lab Data Attestation: I reviewed the patient's lab results. Labs: Lab Results 11/22/22 11/22/22 Range/Units 14:15 14:25 WBC 3.8 L (4.0-11.0) 10^3/uL RBC 3.07 L (4.70-6.10) 10^6/uL Hgb 11.3 L (14.0-18.0) g/dL Hct 32.8 L (42.0-54.0) % MCV 106.8 H (80.0-94.0) fL MCH 36.8 H (25.9-34.0) pg MCHC 34.5 (29.9-35.2) g/dL RDW 14.1 (11.0-15.0) % Plt Count 112 L (150-450) 10^3/uL MPV 10.5 (9.5-13.5) fL Neut % (Auto) 76.2 H (43.0-75.0) % Lymph % (Auto) 18.8 L (20.5-60.0) % [place] % (Auto) 2.1 (1.7-12.0) % Eos % (Auto) 2.1 (0.9-7.0) % Baso % (Auto) 0.5 (0.2-2.0) % Neut # (Auto) 2.9 (1.4-6.5) 10^3/uL Lymph # (Auto) 0.7 L (1.2-3.8) 10^3/uL [place] # (Auto) 0.1 L (0.3-0.8) 10^3/uL Eos # (Auto) 0.1 (0.0-0.7) 10^3/uL Baso # (Auto) 0.0 (0.0-0.1) 10^3/uL Abs Immat Gran (auto) 0.01 (0.00-0.03) 10^3/uL Imm/Tot Granulo (auto) 0.3 (0.0-0.5) % Sodium 140 (136-145) mmol/L Potassium 4.0 (3.5-5.1) mmol/L Chloride 104 (98-107) mmol/L Carbon Dioxide 28.2 (21.0-32.0) mmol/L Anion Gap 11.8 BUN 20.0 H (7.0-18.0) mg/dL Creatinine 1.02 (0.70-1.30) mg/dL Est GFR ( Amer) >60 (>=60) Est GFR (Non-Af Amer) >60 (>=60) BUN/Creatinine Ratio 19.6 Glucose 103 (74-106) mg/dL Calcium 8.5 (8.5-10.1) mg/dL Total Bilirubin 1.8 H (0.2-1.0) mg/dL AST 17 (15-37) U/L ALT <6 L (16-63) U/L Alkaline Phosphatase 149 H (46-116) U/L Troponin I High Sens 24.0 (4.0-76.1) pg/mL Total Protein 6.7 (6.4-8.2) g/dL Albumin 3.0 L (3.4-5.0) g/dL Globulin 3.7 g/dL Albumin/Globulin Ratio 0.8 POC Glucose 112 H (74-106) mg/dL Imaging Data ct thoracic & lumbar spine: Radiologist's impression: Patient Name: ANNALISA ESCOBAR MRN: [facility]:[id number] date: 1940 Sex: M Assigned Patient Location: ER Current Patient Location: ER Accession/Order Number: [id number] Exam Date: 11/22/2022 15:02 Report Date: 11/22/2022 15:44 At the request of: GUILLERMO ELI Procedure: CT lumbar spine wo con EXAM: CT thoracic spine wo con, CT lumbar spine wo con HISTORY: fall, back pain COMPARISON: CT abdomen and pelvis 09/23/2022. TECHNIQUE: CT thoracolumbar spine without contrast. Multiplanar reformats obtained. The current study utilizes one or more of the following dose-reduction techniques: automated exposure control, iterative reconstruction, and/or manual adjustment of tube current and voltage for size. FINDINGS: Thoracic spine: Bones are demineralized. Multilevel flowing bridging anterior vertebral osteophytes. T11 wedge compression deformity with 20% height loss. T12 vertebral body fracture with less than 20% height loss, fracture involves the bridging osteophyte of the T11-T12 vertebrae. Cardiomegaly. Mild basilar atelectasis. Small hiatal hernia. Biliary sludge versus cholelithiasis. Tiny duodenal diverticulum. Lumbar spine: Bones are demineralized. L4 superior endplate fracture with up to 20% height loss centrally. Severe lumbar facet arthropathy. No traumatic malalignment. L5-S1 osseous fusion. Multilevel bridging osteophytes. Ankylosis of the thoracolumbar spine. IMPRESSION: T12 vertebral body fracture with less than 20% height loss. Fracture involves the bridging syndesmophytes of the T11-T12 vertebrae. L4 superior endplate fracture with up to 20% height loss centrally. Electronically authenticated by: OLIVERIO FRANCOIS Date: 11/22/2022 15:44 ECG Data Interpretation: EKG interpretation: Emergency Department physician interpretation. rate controlled atrial flutter at 76bpm. Normal axis, normal intervals and no ST segment elevation or depression. Discharge Plan Discharge Chief Complaint: Fall Clinical Impression: Fracture of thoracic spine, Fracture, vertebral, lumbar closed, Intractable back pain Patient Disposition: Admitted As Inpatient Time of Disposition Decision: 16:29 Prescriptions / Home Meds: No Action amlodipine 5 mg tablet 5 mg PO DAILY gabapentin 100 mg capsule 100 mg PO TID lorazepam 1 mg tablet 0.5 mg PO Q12H PRN (Reason: agitation) pantoprazole 40 mg tablet,delayed release (DR/EC) 40 mg PO DAILY atorvastatin 40 mg tablet 40 mg PO QDAY insulin aspart U-100 [Novolog U-100 Insulin aspart] 100 unit/mL solution See Rx Instructions subcut .[id number] Rx Instructions: subcutaneously [id number]; Novolin N NPH U-100 Insulin 100 unit/mL suspension 24 unit SUBCUT .q2day aspirin [Adult Low Dose Aspirin] 81 mg tablet,delayed release (DR/EC) 81 mg PO DAILY Referrals: Shaikh Santos MD [Primary Care Provider] - 1 week
[2022-11-22] MEDS: KETOROLAC TROMETHAMINE 30 MG/ML VIAL IVP (18:39)
[2022-11-22] MEDS: TRAMADOL HCL 50 MG TABLET PO (20:22)
[2022-11-22] MEDS: ACETAMINOPHEN 500 MG TABLET 1000 MG PO (20:22)
[2022-11-22] MEDS: GABAPENTIN 100 MG CAPSULE PO (22:49)
[2022-11-22 22:50] LABS: Glucometer 117 mg/dL (74-106)
[2022-11-23] MEDS: KETOROLAC TROMETHAMINE 30 MG/ML VIAL IVP ×3 (01:05→12:16)
[2022-11-23] MEDS: ACETAMINOPHEN 500 MG TABLET 1000 MG PO (02:50)
[2022-11-23] MEDS: TRAMADOL HCL 50 MG TABLET PO (02:52)
[2022-11-23 04:58] LABS: Basophils Percent Auto 0.3 % (0.2-2.0); Eosinophils Absolute Auto 0.1 10^3/uL (0.0-0.7); Eosinophils Percent Auto 3.7 % (0.9-7.0); Hematocrit 31.5 % (42.0-54.0); Hemoglobin 10.7 g/dL (14.0-18.0); Immature Granulocytes Abs Auto 0.01 10^3/uL (0.00-0.03); Immature Granulocytes Pct Auto 0.3 % (0.0-0.5); Lymphocytes Absolute Auto 0.6 10^3/uL (1.2-3.8); Lymphocytes Percent Auto 19.3 % (20.5-60.0); Mean Corpuscular Hemoglobin 36.5 pg (25.9-34.0); Mean Corpuscular Volume 107.5 fL (80.0-94.0); Mean Platelet Volume 10.4 fL (9.5-13.5); Monocytes Absolute Auto 0.1 10^3/uL (0.3-0.8); Monocytes Percent Auto 2.7 % (1.7-12.0); Neutrophils Absolute Auto 2.2 10^3/uL (1.4-6.5); Neutrophils Percent Auto 73.7 % (43.0-75.0); Platelet Count 108 10^3/uL (150-450); Red Blood Count 2.93 10^6/uL (4.70-6.10); Red Cell Distribution Width 13.9 % (11.0-15.0)
[2022-11-23 05:07] LABS: Anion Gap 8.5; BUN Creatinine Ratio 26.1; Carbon Dioxide 27.8 mmol/L (21.0-32.0); Chloride 102 mmol/L (98-107); Estimated GFR (African America >60 (>=60); Estimated GFR (Non-African Ame >60 (>=60); Glucose 117 mg/dL (74-106); Potassium 3.3 mmol/L (3.5-5.1); Sodium 135 mmol/L (136-145)
[2022-11-23 05:56] VITALS: BP 133/81; PULSE 70; RESP 20; TEMP 36.7; O2SAT 93
[2022-11-23] MEDS: GABAPENTIN 100 MG CAPSULE PO ×2 (07:17→13:44)
--- NOTE | 2022-11-23 07:29 | PC.NURSE ---
IV RESTART ATTEMPT TIMES 2 WITHOUT SUCCESS. BOTH WITH 22 GUAGE CATHETERS. ONE TO LEFT WRIST AND LEFT ANTECUBITAL. PATIENT TOLERATED WELL
--- NOTE | 2022-11-23 07:52 | PC.NURSE ---
attempt to start IV in right forearm, failed attempt, pt tolerated well
[2022-11-23] MEDS: SENNOSIDES 8.6 MG TABLET 17.2 MG PO (08:44)
[2022-11-23] MEDS: ASPIRIN 81 MG TABLET.DR PO (08:44)
[2022-11-23] MEDS: ATORVASTATIN CALCIUM 40 MG TABLET PO (08:44)
[2022-11-23] MEDS: AMLODIPINE BESYLATE 5 MG TABLET PO (08:44)
--- NOTE | 2022-11-23 10:44 | SWNOTE1 ---
SW received message from case management and pt was at [facility] for rehab and family wanted to check to see if it was 30 days ago, if it was then he could return under his medicare for rehab. PHANI called and spoke with Abrahan at [facility] and pt was discharged on October 22, so today would be day 32. PHANI updated case management. PHANI let case management know if family would like to private pay they can, pt does not meet for inpt criteria at hospital.
--- NOTE | 2022-11-23 10:46 | SWNOTE1 ---
Pt is current with [facility].
[2022-11-23] MEDS: POLYETHYLENE GLYCOL 3350 17 GM POWDER PACKET PO (10:54)
[2022-11-23 11:00] LABS: Glucometer 186 mg/dL (74-106)
--- NOTE | 2022-11-23 11:23 | CT_ITS ---
The [address] [address] Patient Name: ANNALISA ESCOBAR MRN: [id number] date: 1940 Sex: M Assigned Patient Location: MS Current Patient Location: MS Accession/Order Number: [id number] Exam Date: 11/23/2022 11:15 Report Date: 11/23/2022 12:18 At the request of: SHAIKH ALEXANDER Procedure: CT head/brain wo con EXAMINATION: CT head/brain wo con HISTORY: head traumA ; recent fall COMPARISON: No relevant comparison available. TECHNIQUE: Axial CT images were obtained without IV contrast. Dose reduction techniques were achieved by using automated exposure control and/or adjustment of mA and/or kV according to patient size and/or use of iterative reconstruction technique. FINDINGS: BRAIN: No edema, hemorrhage, mass, acute infarction, or inappropriate atrophy. CSF SPACES: No hydrocephalus, subarachnoid hemorrhage, or mass. Appropriate for age. SKULL: Fracture of the anterior margin of the right frontal sinus with 1 mm cortical step-off. No fluid within the frontal sinus or significant mucosal thickening. SINUSES: Mild mucosal thickening within scattered ethmoid air cells. ORBITS: No appreciable abnormality on the limited views. OTHER: Negative CT/CT head/brain wo con IMPRESSION: 1. No intercranial hemorrhage or acute abnormality brain. Age consistent chronic changes. 2. Fracture of the anterior wall of the right frontal sinus. 3. Mild chronic sinusitis of the ethmoid air cells. Electronically authenticated by: ALANA ALMAGUER Date: 11/23/2022 12:18
--- NOTE | 2022-11-23 11:39 | CM.NOTE ---
Rounds made with Dr. Santos, discussed with family PT note states pt would benefit from skilled rehab at discharge. Dr. Santos discussed with family about out of pocket expense d/t pt will be OBS status here at Hospital, will not meet for 3 day inpt stay under Medicare guidelines. Family verbalizes understanding. SW calling for prices for skilled therapy. Pt does have [facility] at this time. CT scan of brain and UA will be sent, will follow pt for other findings. Family will discuss plan of care at discharge after information gathered on cost of [place].
--- NOTE | 2022-11-23 11:52 | SWNOTE1 ---
PHANI did speak with Carol at [facility] and private pay for skilled would be $349.00 per day. PHANI went to let family know, but they stopped out for awhile. SW to check back in.
[2022-11-23 12:37] LABS: Bilirubin Urine SMALL (NEGATIVE); Blood Urine NEGATIVE (NEGATIVE); Clarity Urine CLEAR (CLEAR); Color Urine DK. YELLOW (YELLOW); Glucose Urine UA NEGATIVE (NEGATIVE); Ketones Urine 15 mg/dL (NEGATIVE); Leukocyte Esterase Urine NEGATIVE (NEGATIVE); Nitrite Urine NEGATIVE (NEGATIVE); Protein Urine TRACE mg/dL (NEG/TRACE); Specific Gravity Urine >=1.030 (1.005-1.025)
[2022-11-23 12:51] LABS: Bacteria Urine NONE SEEN #/HPF (NONE SEEN); Cast Seen? NONE SEEN #/LPF (NONE SEEN); Crystals Seen? None Seen #/HPF (None Seen); Mucus Urine TRACE (NONE SEEN); RBC Urine 0-2 #/HPF (0-2); Squamous Epithelial Cell Urine RARE #/LPF (NONE/RARE); WBC Urine 0-2 #/HPF (NONE SEEN)
[2022-11-23 13:15] VITALS: BMI 28.8
[2022-11-23] MEDS: LORAZEPAM 1 MG TABLET 0.5 MG PO (13:44)
--- NOTE | 2022-11-23 14:44 | SWNOTE1 ---
SW had long conversation with pt's daughter and . SW provided out of pocket cost for pt to go to [facility] for rehab, which was $349.00 plus level of care. They have decided they are going to take pt home and resume his [facility] health. They did ask for private caregiver list and also questions in regards to medicaid. SW provided caregiver list and medicaid application. Family and SW spoke about transportation home as well and they have decided they want pt to be transported home by [facility]. SW to call and set up. SW updated doctor and nursing.
[2022-11-23 15:08] VITALS: BP 127/73; PULSE 75; RESP 18; TEMP 36.6; O2SAT 92
--- NOTE | 2022-11-23 15:12 | CM.NOTE ---
Important Message From Medicare discussed with pt's , she verbalizes understanding and signs paper. Original given to pt's and copy placed on pt's chart.
--- NOTE | 2022-11-23 19:14 | PM.HP ---
H&P: HPI History of Present Illness Chief complaint: Fall/Ambulatory dysfunction Narrative: HPI and Hospital Course: 81 y o male who lives with his , fell at home while trying to get off his bed. Over past few months, he has had multiple falls at home and he was recently at OSH because of a fall resulting in facial fx and small sub dural hematoma. Patient has dementia and confusion at baseline. He has poor functional status and uses walker to ambulate. On w/u in ED this time, he had evidence of thoracic and lumbar compression fx. Patient was admitted overnight for observation, pain control and PT/OT eval. Patient was originally admission as outpatient but switched to observation status because he did not meet criteria for inpatient status. Patient's pain was well controlled when I assessed him. However, he had difficulty getting out of bed, getting up and difficulty with ambulation. Admission Diagnosis Fall Lumbar compression fx Thoracic compression fx Dementia T2 DM HLD Discharge diagnosis as above Discharge status stable Review of Systems ROS Status of ROS 10 or more systems reviewed and unremarkable except as noted in history and below [facility] Medical History Surgical History (Updated 11/22/22 @ 18:29 by Millicent Shanks RN) Family History (Updated 11/22/22 @ 17:44 by Millicent Shanks RN) Father Family history of CHF (congestive heart failure) Family history of diabetes mellitus Mother Family history of diabetes mellitus Family history of hypertension Brother Family history of diabetes mellitus Family history of myocardial infarction Social History Smoking status: Never smoker Meds Home Medications and Allergies Home Medications Medication Instructions Recorded Confirmed Type aspirin 81 mg tablet,delayed 81 mg PO DAILY 09/23/22 11/22/22 History release (Adult Low Dose Aspirin) atorvastatin 40 mg tablet 40 mg PO QDAY 09/23/22 11/22/22 History insulin NPH isoph U-100 human 100 24 unit subcut .q2day 09/23/22 11/22/22 History unit/mL subcutaneous suspension (Novolin N NPH U-100 Insulin isophane) insulin aspart U-100 100 unit/mL See Rx Instructions subcut .m1oyawp 09/23/22 11/22/22 History subcutaneous solution (Novolog U-100 Insulin aspart) amlodipine 5 mg tablet 5 mg PO DAILY 11/22/22 11/22/22 History gabapentin 100 mg capsule 100 mg PO TID 11/22/22 11/22/22 History lorazepam 1 mg tablet 0.5 mg PO Q12H PRN agitation 11/22/22 11/22/22 History pantoprazole 40 mg tablet,delayed 40 mg PO DAILY 11/22/22 11/22/22 History release polyethylene glycol 3350 17 17 g PO DAILY 11/22/22 11/22/22 History gram/dose oral powder (ClearLax) sennosides 17.2 mg tablet (Senokot 17.2 mg PO DAILY 11/22/22 11/22/22 History Extra Strength) vitamins A,C,D-tdjs-thkecp 4,296 1 cap PO DAILY 11/22/22 11/22/22 History mcg-226 mg-90 mg capsule (PreserVision AREDS) Allergies Allergy/AdvReac Type Severity Reaction Status Date / Time No Known Drug Allergies Allergy Verified 09/23/22 03:58 Exam Constitutional Vital Signs, click to edit/add: Last Vital Signs Temp 97.8 F 11/23/22 15:08 Pulse 75 11/23/22 15:08 Resp 18 11/23/22 15:08 BP 127/73 11/23/22 15:08 Pulse Ox 92 L 11/23/22 15:08 O2 Del Method Room Air 11/23/22 15:08 O2 Flow Rate 3 11/22/22 15:42 Documenting provider has reviewed patient's vital signs: yes Common normals: no apparent distress and oriented x3 General appearance: cooperative HENWI Common normals: normocephalic and head/scalp atraumatic Head and scalp: normocephalic and atraumatic Eye Common normals: conjunctivae normal and no scleral icterus Conjunctiva: conjunctiva(e) normal Respiratory Common normals: normal respiratory effort and clear to auscultation bilaterally Effort & inspection: able to speak in complete sentences Auscultation: clear to auscultation bilaterally Cardio Common normals: regular rate, S1 normal heart sound and S2 normal heart sound Rate: regular rate Heart sounds: S1 normal and S2 normal GI Common normals: Normal to inspection, nondistended, normoactive bowel sounds present, soft to palpation, non-tender and no hepatosplenomegaly Palpation: soft and no hepatosplenomegaly Extremity Common normals: no clubbing, cyanosis or edema Other: restricted flexion at thoacolumbar spine No tenderness on palpation Neuro Common normals: oriented x3, moves all extremities and no focal motor deficits Psych Common normals: mental status grossly normal, denies hallucinations, denies homicidal ideation and denies suicidal ideation Results Labs Labs: Short CBC 11/23/22 Range/Units 04:06 WBC 3.0 L (4.0-11.0) 10^3/uL Hgb 10.7 L (14.0-18.0) g/dL Hct 31.5 L (42.0-54.0) % Plt Count 108 L (150-450) 10^3/uL BMP 11/23/22 04:06 Sodium 135 L Potassium 3.3 L Chloride 102 Carbon Dioxide 27.8 BUN 24.0 H Creatinine 0.92 Glucose 117 H Calcium 8.0 L Urine 11/23/22 Range/Units 11:37 Urine Color Dk. yellow (YELLOW) Urine Clarity Clear (CLEAR) Urine pH 5.0 (5.0-9.0) Ur Specific Morgan >=1.030 A (1.005-1.025) Urine Protein Trace (NEG/TRACE) mg/dL Urine Glucose (UA) Negative (NEGATIVE) mg/dL Assessment and Plan Assessment and Plan (1) Fall: Assessment and Plan: Mechanical fall. Frequent falls at home COmpression fx at thoracic spine and lumbar spine CT head no acute pathology D/c home with home health and home PT (2) Compression fracture of body of thoracic vertebra: Assessment and Plan: From fall, non displaced. Outpatient f/u with Orthopedic. Pain is controlled. (3) Compression fracture of lumbar vertebra: Assessment and Plan: From fall, non displaced. Outpatient f/u with Orthopedic. Pain is controlled. (4) History of dementia: Assessment and Plan: Confused at baseline but answering questions appropriately. Mental status waxes and wanes Outpatient f/u (5) History of diabetes mellitus, type II: Assessment and Plan: C/w home meds. On Insulin (6) History of hypertension: Assessment and Plan: C/w home meds. BP at goal
--- NOTE | 2022-11-24 13:55 | CM.DCFOLLOWU ---
Person spoke with: Daughter and How are you feeling? He is up and down and continues having pain How is your pain? Still having pain- medicating with Tylenol Did you understand your discharge instructions? yes Do you have any questions about your discharge instructions? No Were you given any prescriptions at discharge? No Were you able to get your prescriptions filled? N/A Do you understand how to take your medications as ordered? Yes Do you have any questions about your follow up appointment and do you plan to keep your follow up appointment? It is scheduled and we plan on going Is there anything else that you would like to discuss? No Questions/Comments/Concerns/Other:
== END 2022-11-23 16:55 | disposition home health service (06) | DRG 552 ==
LOC: ER 17:14 → ICU 17:27 → MS 22:06
PROVIDERS: Family Medicine; Admitting Provider Internal Medicine; Emergency Provider Emergency Medicine; PCP Internal Medicine; Visit Provider Internal Medicine
DX: S32.040A Wedge compression fracture of fourth lumbar vertebra, initial encounter for closed fracture (principal); S22.080A Wedge compression fracture of T11-T12 vertebra, initial encounter for closed fracture; F03.90 Unspecified dementia, unspecified severity, without behavioral disturbance, psychotic disturbance, mood disturbance, and anxiety; E78.5 Hyperlipidemia, unspecified; I10 Essential (primary) hypertension; W19.XXXA Unspecified fall, initial encounter; Z79.82 Long term (current) use of aspirin; Z79.899 Other long term (current) drug therapy; Z79.4 Long term (current) use of insulin; Z91.81 History of falling
CPT/HCPCS: 36415; 70450; 72128; 72131; 80048; 80053; 81001; 84484; 85025; 93005; 96374; 96375; 96376; 97161; 97165; 99285; J1170

== ENCOUNTER 2022-12-02 02:00 | Outpatient (REF) | payer MEDICARE, SELFPAY ==
[2022-12-02 13:12] LABS: Basophils Percent Auto 0.5 % (0.2-2.0); Eosinophils Percent Auto 0.8 % (0.9-7.0); Hematocrit 35.7 % (42.0-54.0); Hemoglobin 11.9 g/dL (14.0-18.0); Immature Granulocytes Abs Auto 0.01 10^3/uL (0.00-0.03); Immature Granulocytes Pct Auto 0.3 % (0.0-0.5); Lymphocytes Absolute Auto 0.7 10^3/uL (1.2-3.8); Lymphocytes Percent Auto 17.3 % (20.5-60.0); Mean Corpuscular HGB Conc 33.3 g/dL (29.9-35.2); Mean Corpuscular Hemoglobin 35.5 pg (25.9-34.0); Mean Platelet Volume 11.9 fL (9.5-13.5); Monocytes Absolute Auto 0.1 10^3/uL (0.3-0.8); Monocytes Percent Auto 3.1 % (1.7-12.0); Platelet Count 139 10^3/uL (150-450); Red Blood Count 3.35 10^6/uL (4.70-6.10); Red Cell Distribution Width 14.2 % (11.0-15.0); White Blood Count 3.9 10^3/uL (4.0-11.0)
[2022-12-02 13:25] LABS: Mean Corpuscular Volume 106.6 fL (80.0-94.0)
[2022-12-02 13:32] LABS: Estimated Average Glucose 148 mg/dL; Glycohemoglobin A1C 6.8 % (4.5-6.2)
[2022-12-02 15:45] LABS: Alanine Aminotransferase 64 U/L (16-63); Albumin Globulin Ratio 0.9; Albumin Level 3.3 g/dL (3.4-5.0); Alkaline Phosphatase 190 U/L (46-116); Anion Gap 11.4; Aspartate Amino Transferase 34 U/L (15-37); BUN Creatinine Ratio 29.2; Calcium 8.8 mg/dL (8.5-10.1); Carbon Dioxide 26.3 mmol/L (21.0-32.0); Chloride 102 mmol/L (98-107); Chol HDL Ratio 2.5; Cholesterol 88 mg/dL (<=200); Estimated GFR (African America >60 (>=60); Estimated GFR (Non-African Ame >60 (>=60); Globulin 3.7 g/dL; Glucose 334 mg/dL (74-106); HDL Cholesterol 35 mg/dL (40-60); Potassium 3.7 mmol/L (3.5-5.1); Sodium 136 mmol/L (136-145); Triglycerides 75 mg/dL (<=150)
== END 2022-12-02 02:01 | disposition home or self-care (01) ==
LOC: LAB 02:00
PROVIDERS: PCP Internal Medicine; Visit Provider Family Medicine
DX: E78.5 Hyperlipidemia, unspecified (principal); I50.22 Chronic systolic (congestive) heart failure; E10.9 Type 1 diabetes mellitus without complications
CPT/HCPCS: 36415; 80053; 80061; 82306; 83036; 85025

== ENCOUNTER 2022-12-11 09:00 | Outpatient (RCR) | payer MEDICARE, SELFPAY | END 2023-01-08 16:54 | disposition home or self-care (01) | LOC: MM 09:00 | PROVIDERS: PCP Internal Medicine; Visit Provider Internal Medicine | DX: Z51.81 Encounter for therapeutic drug level monitoring (principal); Z79.01 Long term (current) use of anticoagulants; I48.20 Chronic atrial fibrillation, unspecified ==

== ENCOUNTER 2023-01-11 02:00 | Outpatient (RCR) | payer MEDICARE, SELFPAY | END 2023-02-09 17:26 | disposition home or self-care (01) | LOC: MM 02:00 | PROVIDERS: PCP Internal Medicine; Visit Provider Internal Medicine | DX: Z51.81 Encounter for therapeutic drug level monitoring (principal); Z79.01 Long term (current) use of anticoagulants; I48.20 Chronic atrial fibrillation, unspecified ==

== ENCOUNTER 2023-02-10 00:17 | Outpatient (RCR) | payer MEDICARE, SELFPAY | END 2023-03-11 16:05 | disposition home or self-care (01) | LOC: MM 00:17 | PROVIDERS: PCP Internal Medicine; Visit Provider Internal Medicine | DX: Z51.81 Encounter for therapeutic drug level monitoring (principal); Z79.01 Long term (current) use of anticoagulants; I48.20 Chronic atrial fibrillation, unspecified ==

== ENCOUNTER 2023-02-14 07:24 | Outpatient (REF) | payer MEDICARE, SELFPAY ==
[2023-02-15 07:33] LABS: Bilirubin Urine NEGATIVE (NEGATIVE); Blood Urine NEGATIVE (NEGATIVE); Clarity Urine CLEAR (CLEAR); Color Urine YELLOW (YELLOW); Glucose Urine UA NEGATIVE (NEGATIVE); Ketones Urine NEGATIVE (NEGATIVE); Leukocyte Esterase Urine NEGATIVE (NEGATIVE); Nitrite Urine NEGATIVE (NEGATIVE); Protein Urine NEGATIVE (NEG/TRACE); Specific Gravity Urine >=1.030 (1.005-1.025); Urobilinogen Urine 0.2 EU/dL (0.2-1.0)
[2023-02-15 07:38] LABS: Urine Microscopic Indicated NO
== END 2023-02-14 07:25 | disposition home or self-care (01) ==
LOC: LAB 07:24
PROVIDERS: PCP Internal Medicine; Visit Provider Family Medicine
DX: I10 Essential (primary) hypertension (principal)
CPT/HCPCS: 81003

== ENCOUNTER 2023-02-15 01:58 | Outpatient (REF) | payer MEDICARE, SELFPAY ==
[2023-02-15 08:24] LABS: BUN Creatinine Ratio 32.3; Calcium 9.1 mg/dL (8.5-10.1); Carbon Dioxide 28.6 mmol/L (21.0-32.0); Chloride 105 mmol/L (98-107); Estimated GFR (African America >60 (>=60); Estimated GFR (Non-African Ame >60 (>=60); Glucose 59 mg/dL (74-106); Potassium 3.6 mmol/L (3.5-5.1); Sodium 140 mmol/L (136-145)
== END 2023-02-15 01:59 | disposition home or self-care (01) ==
LOC: LAB 01:58
PROVIDERS: PCP Internal Medicine; Visit Provider Family Medicine
DX: I10 Essential (primary) hypertension (principal)
CPT/HCPCS: 36415; 80048

== ENCOUNTER 2023-02-24 07:07 | Outpatient (REF) | payer MEDICARE, SELFPAY ==
[2023-02-24 08:50] LABS: Basophils Percent Auto 0.5 % (0.2-2.0); Eosinophils Percent Auto 1.4 % (0.9-7.0); Hematocrit 34.6 % (42.0-54.0); Hemoglobin 11.9 g/dL (14.0-18.0); Lymphocytes Absolute Auto 0.8 10^3/uL (1.2-3.8); Lymphocytes Percent Auto 36.7 % (20.5-60.0); Mean Corpuscular HGB Conc 34.4 g/dL (29.9-35.2); Mean Corpuscular Hemoglobin 36.3 pg (25.9-34.0); Mean Platelet Volume 11.7 fL (9.5-13.5); Monocytes Absolute Auto 0.1 10^3/uL (0.3-0.8); Monocytes Percent Auto 3.4 % (1.7-12.0); Neutrophils Absolute Auto 1.2 10^3/uL (1.4-6.5); Platelet Count 95 10^3/uL (150-450); Red Blood Count 3.28 10^6/uL (4.70-6.10); Red Cell Distribution Width 14.4 % (11.0-15.0); White Blood Count 2.1 10^3/uL (4.0-11.0)
[2023-02-24 08:51] LABS: Mean Corpuscular Volume 105.5 fL (80.0-94.0)
[2023-02-24 09:22] LABS: Anion Gap 12.2; BUN Creatinine Ratio 46.3; Calcium 9.1 mg/dL (8.5-10.1); Carbon Dioxide 28.6 mmol/L (21.0-32.0); Chloride 105 mmol/L (98-107); Estimated GFR (African America >60 (>=60); Estimated GFR (Non-African Ame >60 (>=60); Glucose 95 mg/dL (74-106); Potassium 3.8 mmol/L (3.5-5.1); Sodium 142 mmol/L (136-145)
== END 2023-02-24 07:08 | disposition home or self-care (01) ==
LOC: LAB 07:07
PROVIDERS: PCP Internal Medicine
DX: R41.82 Altered mental status, unspecified (principal); R45.1 Restlessness and agitation
CPT/HCPCS: 36415; 80048; 85025

== ENCOUNTER 2023-03-12 09:15 | Outpatient (RCR) | payer MEDICARE, SELFPAY | END 2023-04-09 14:36 | disposition home or self-care (01) | LOC: MM 09:15 | PROVIDERS: PCP Internal Medicine; Visit Provider Internal Medicine | DX: Z51.81 Encounter for therapeutic drug level monitoring (principal); Z79.01 Long term (current) use of anticoagulants; I48.20 Chronic atrial fibrillation, unspecified ==

== ENCOUNTER 2023-04-12 01:45 | Outpatient (RCR) | payer MEDICARE, SELFPAY | END 2023-05-12 17:15 | disposition home or self-care (01) | LOC: MM 01:45 | PROVIDERS: PCP Internal Medicine; Visit Provider Internal Medicine | DX: Z51.81 Encounter for therapeutic drug level monitoring (principal); Z79.01 Long term (current) use of anticoagulants; I48.20 Chronic atrial fibrillation, unspecified ==

== ENCOUNTER 2023-05-13 01:50 | Outpatient (RCR) | payer MEDICARE, SELFPAY | END 2023-06-10 17:27 | disposition home or self-care (01) | LOC: MM 01:50 | PROVIDERS: PCP Internal Medicine; Visit Provider Internal Medicine | DX: Z51.81 Encounter for therapeutic drug level monitoring (principal); Z79.01 Long term (current) use of anticoagulants; I48.91 Unspecified atrial fibrillation ==

== ENCOUNTER 2023-06-11 01:19 | Outpatient (RCR) | payer MEDICARE, SELFPAY | END 2023-07-09 13:29 | disposition home or self-care (01) | LOC: MM 01:19 | PROVIDERS: PCP Internal Medicine; Visit Provider Internal Medicine | DX: Z51.81 Encounter for therapeutic drug level monitoring (principal); Z79.01 Long term (current) use of anticoagulants; I48.20 Chronic atrial fibrillation, unspecified ==

== ENCOUNTER 2023-07-12 00:12 | Outpatient (RCR) | payer MEDICARE, SELFPAY | END 2023-08-10 17:54 | disposition home or self-care (01) | LOC: MM 00:12 | PROVIDERS: PCP Internal Medicine; Visit Provider Internal Medicine | DX: Z51.81 Encounter for therapeutic drug level monitoring (principal); Z79.01 Long term (current) use of anticoagulants; I48.20 Chronic atrial fibrillation, unspecified ==

== ENCOUNTER 2023-08-11 04:36 | Outpatient (RCR) | payer MEDICARE, SELFPAY | END 2023-09-10 11:52 | disposition home or self-care (01) | LOC: MM 04:36 | PROVIDERS: PCP Internal Medicine; Visit Provider Internal Medicine | DX: Z51.81 Encounter for therapeutic drug level monitoring (principal); Z79.01 Long term (current) use of anticoagulants; I48.20 Chronic atrial fibrillation, unspecified ==

== ENCOUNTER 2023-09-13 03:28 | Outpatient (RCR) | payer MEDICARE, SELFPAY | END 2023-10-08 11:05 | disposition home or self-care (01) | LOC: MM 03:28 | PROVIDERS: PCP Internal Medicine; Visit Provider Internal Medicine | DX: Z51.81 Encounter for therapeutic drug level monitoring (principal); Z79.01 Long term (current) use of anticoagulants; I48.20 Chronic atrial fibrillation, unspecified ==

== ENCOUNTER 2023-10-11 00:20 | Outpatient (RCR) | payer MEDICARE, SELFPAY | END 2023-11-10 23:59 | disposition home or self-care (01) | LOC: MM 00:20 | PROVIDERS: PCP Internal Medicine; Visit Provider Internal Medicine | DX: Z51.81 Encounter for therapeutic drug level monitoring (principal); Z79.01 Long term (current) use of anticoagulants; I48.20 Chronic atrial fibrillation, unspecified ==